=== PATIENT | female | born 1975 | race African-American/Black ===

== ENCOUNTER 2017-06-10 14:05 | Emergency (ER) | payer SELFPAY ==
[~2017-06-10] VITALS: Ht 157.5 cm; Wt 61.1 kg
[2017-06-10] MEDS ORDERED: NIFE20CA PO (14:32)
[2017-06-10] MEDS ORDERED: NS 1,000 ML IV ONE (15:45)
[2017-06-10 15:57] LABS: CONTROL LINE UCG INT CTR LINE PRESENT
[2017-06-10 16:00] LABS: BASO % 0.6 % (0.0-1.0); EOS # 0.1 10^3/uL (0.0-0.50); EOS % 2.7 % (0.0-3.0); IMMATURE GRANULOCYTE % 0.2 % (0-0); LYMPH # 2.2 10^3/uL (1.5-4.5); LYMPH % 42.3 % (24.0-44.0); MEAN CORPUSCULAR HEMOGLOBIN 30.7 pg (27.0-33.0); MEAN CORPUSCULAR HGB CONC 32.6 g/dl (32.0-36.5); MEAN CORPUSCULAR VOLUME 94.4 fl (80.0-96.0); MONO # 0.4 10^3/uL (0.0-0.8); MONO % 7.1 % (0.0-5.0); NEUTROPHILS # 2.5 10^3/uL (1.8-7.7); NEUTROPHILS % 47.1 % (36.0-66.0); PLATELET COUNT, AUTOMATED 384 10^3/uL (150-450); RED CELL DISTRIBUTION WIDTH 12.4 % (11.5-14.5); WHITE BLOOD COUNT 5.2 10^3/uL (4.0-10.0)
[2017-06-10 16:36] LABS: ALBUMIN/GLOBULIN RATIO 1.05 (1.00-1.93); ALKALINE PHOSPHATASE 56 U/L (45-117); ALT/SGPT 17 U/L (12-78); ANION GAP 7 MEQ/L (8-16); AST/SGOT 10 U/L (7-37); BILIRUBIN,DIRECT 0.2 MG/DL (0.0-0.2); BILIRUBIN,TOTAL 0.9 MG/DL (0.2-1.0); BLOOD UREA NITROGEN 11 MG/DL (7-18); CALCIUM LEVEL 9.6 MG/DL (8.5-10.1); CARBON DIOXIDE LEVEL 27 MEQ/L (21-32); CHLORIDE LEVEL 103 MEQ/L (98-107); CREATININE FOR GFR 0.79 MG/DL (0.55-1.02); FREE T4 1.01 NG/DL (0.76-1.46); GLOMERULAR FILTRATION RATE > 60.0 (>58); GLUCOSE, FASTING 80 MG/DL (70-105); HCG, SERUM QUANTITATIVE 3479 MIU/ML; POTASSIUM SERUM 4.3 MEQ/L (3.5-5.1); SODIUM LEVEL 137 MEQ/L (136-145); TOTAL PROTEIN 7.8 GM/DL (6.4-8.2)
[2017-06-10 17:46] VITALS: BP 143/86
--- NOTE | 2017-06-11 09:17 | REP ---
OB ULTRASOUND: OB ultrasound performed utilized transabdominal technique. There is a single living intrauterine gestation. Estimated gestational age is 6 weeks based on a crown-rump length of 4 mm. EDC 02/03/2018. heart rate is 165 beats per minute. I see no evidence of a subchronic hemorrhage. No maternal adnexal region abnormalities are seen. Signed by Lalo Rivera MD 06/11/2017 05:28 P
== END 2017-06-10 17:48 | disposition home or self-care (01) ==
LOC: M ED 14:05
DX: O20.9 Hemorrhage in early pregnancy, unspecified (principal); Z3A.01 Less than 8 weeks gestation of pregnancy

== ENCOUNTER → 2017-06-12 | Outpatient (CLI) | payer SELFPAY ==
[~2017-06-12] MED LIST: NIFE20CA PO
== END ==
LOC: M LAB 17:54
PROVIDERS: ATTEND Physician Assistant
DX: O20.9 Hemorrhage in early pregnancy, unspecified (principal); Z3A.00 Weeks of gestation of pregnancy not specified